=== PATIENT | male | born 1995 | race Asian ===

== ENCOUNTER 2025-01-21 08:37 | Outpatient (REF) | payer OTHER, SELFPAY ==
--- NOTE | ~2025-01-21 | US_ITS ---
EXAMINATION: US ABDOMEN LIMITED HISTORY: UPPER ABD PAIN TECHNIQUE: Real-time grayscale ultrasound imaging of the right upper quadrant was performed and images were reviewed. COMPARISON: There are no prior studies available for comparison. FINDINGS: Liver: The right lobe of the liver measures 14.1 cm in size. The left lobe of the liver measures 9.3 cm in size. The liver demonstrates normal homogeneous echotexture. No focal mass or intrahepatic biliary ductal dilatation is identified. There is normal hepatopedal flow in the portal vein. Gallbladder and biliary tree: The gallbladder is unremarkable, without evidence of calculi, wall thickening, or pericholecystic fluid. There is no sonographic Richter sign. The common bile duct is normal in caliber measuring 2 mm. Right Kidney: The right kidney measures 11.4 cm in length. The right kidney is unremarkable, without evidence of masses, hydronephrosis, or calculi. Pancreas: The pancreatic head, neck, and body are unremarkable. The pancreatic tail is obscured by bowel gas. Abdominal aorta and inferior vena cava: The visualized portions of the abdominal aorta and inferior vena cava are normal in caliber. There is no free fluid in the right upper quadrant. US/US abdomen limited IMPRESSION: Unremarkable right upper quadrant ultrasound. Electronically signed by: Diego Saldivar MD 01/21/2025 10:59 AM [facility]
== END 2025-01-21 08:38 | disposition home or self-care (01) ==
LOC: HO.UMASIMG 08:37
PROVIDERS: Visit Provider Emergency Medicine
DX: R42 Dizziness and giddiness (principal); R10.10 Upper abdominal pain, unspecified
CPT/HCPCS: 76705

== ENCOUNTER → 2025-01-21 09:37 | Outpatient (BNV) | payer OTHER, SELFPAY | PROVIDERS: Visit Provider Radiology Diagnostic Radiology | DX: R10.10 Upper abdominal pain, unspecified (principal) | CPT/HCPCS: 76705 ==